=== PATIENT | female | born 1970 ===

== ENCOUNTER 2018-01-14 07:08 | Day surgery (SDC) | payer OTHER ==
[~2018-01-14 07:08] MED LIST: Buffered Lidocaine 0.9% SYRIN* 5 ML/SYR SYRINGE INTRADERM ONE; Famotidine IV* 10 MG/ML 2 ML (20 mg) IV ONE; Metoclopramide TAB* 10 MG PO ONE
[2018-01-14] MEDS ORDERED: Famotidine IV* 10 MG/ML 2 ML (20 mg) ONE (07:16)
[2018-01-14] MEDS ORDERED: Buffered Lidocaine 0.9% SYRIN* 5 ML/SYR SYRINGE ONE (07:16)
[2018-01-14] MEDS ORDERED: Metoclopramide IV* 5 MG/ML 2 ML VIAL ONE (07:16)
[2018-01-14] MEDS ORDERED: Metoclopramide TAB* 10 MG ONE (07:49)
[2018-01-14] MEDS ORDERED: Bupivacaine 0.25% SDV* 30 ML ONE (07:55)
[2018-01-14] MEDS ORDERED: Propofol* 10 MG/ML 20 ML BTL IV PUSH ONE ×2 (08:17→10:08)
[2018-01-14] MEDS ORDERED: Lidocaine 2% PF * 5 ML VIAL ONE (08:17)
[2018-01-14] MEDS ORDERED: fentaNYL* 50 MCG/ML 2 ML VIAL (100 MCG VIAL) ONE (08:17)
[2018-01-14] MEDS ORDERED: Dexamethasone IV* 4 MG/ML 1 ML (4 MG) ONE (08:17)
[2018-01-14] MEDS ORDERED: Ondansetron INJ* 2 MG/ML VIAL ONE (08:17)
[2018-01-14] MEDS ORDERED: Ketorolac INJ* 30 MG/ML 1 ML VIAL ONE (08:17)
[2018-01-14] MEDS ORDERED: Midazolam* 1 MG/ML 10 ML VIAL (10 MG) ONE (08:17)
[2018-01-14] MEDS ORDERED: Ondansetron INJ* 2 MG/ML VIAL IV PRN (08:34)
[2018-01-14] MEDS ORDERED: oxyCODONE/Acetamin 5/325 MG* TAB PO PRN (08:34)
[2018-01-14] MEDS ORDERED: Naloxone* 0.4 MG/ML 1 ML VIAL IV PRN (08:34)
[2018-01-14] MEDS ORDERED: fentaNYL* 50 MCG/ML 2 ML VIAL (100 MCG VIAL) IV PRN (08:34)
[2018-01-14 11:09] VITALS: BP 103/55
--- NOTE | 2018-01-18 14:02 | OP ---
DATE OF OPERATION: 01/14/18 - SDS DATE OF : 72 SURGEON: Remigio Costa MD CARPENTER PROTOTYPE: TYSON Mckinney ANESTHESIOLOGIST: Dr. Nuñez. ANESTHESIA: Local MAC. PRE-OP DIAGNOSIS: Right carpal tunnel syndrome. POST-OP DIAGNOSIS: Right carpal tunnel syndrome. OPERATIVE PROCEDURE: Right open carpal tunnel release. INDICATIONS: Britany is 48 years old. She has had progressive right carpal tunnel syndrome. I talked to her about her options, she had wanted to proceed with a right carpal tunnel release. FINDINGS: As expected. ESTIMATED BLOOD LOSS: 2 mL. COMPLICATIONS: None. DESCRIPTION OF PROCEDURE: Britany was seen in the preoperative holding area. The correct site, side, and procedure were identified. We came back to the operating room, where she got some anesthesia. I infiltrated the operative area with 0.25% plain Marcaine. The arm was then prepped and draped in the usual fashion and a time-out was performed. I then exsanguinated the arm with the Esmarch and the tourniquet was inflated to 250 mmHg. I made a 2 to 3-cm longitudinal incision in the standard location for an open carpal tunnel release. Dissection was carried down through the subcutaneous tissue and palmar fascia. The transverse carpal ligament was released just off the radial aspect of the hook of the hamate. Once the nerve was completely released distally, I came proximally and released the fascia and subcutaneous tissue and retracted this volarly and ulnarly and then under direct visualization, I released the remainder of the transverse carpal ligament and distal antebrachial fascia to a level several centimeters proximal to the wrist flexion crease. Once there was absolutely no compression on the nerve, I irrigated out the wound. The skin was closed with 4-0 nylon suture. The wound was dressed with Xeroform, 4x4's, sterile Webril, and an Mingo bandage. She was then taken to the recovery room in stable condition. [id number]/[facility] #: [id number] MTDD
== END 2018-01-14 11:33 | disposition home or self-care (01) ==
LOC: OR 07:08
PROVIDERS: ATTEND Orthopaedic Surgery Hand Surgery
DX: G56.01 Carpal tunnel syndrome, right upper limb (principal); E11.9 Type 2 diabetes mellitus without complications; E55.9 Vitamin D deficiency, unspecified; E78.00 Pure hypercholesterolemia, unspecified; R74.0 Nonspecific elevation of levels of transaminase and lactic acid dehydrogenase [LDH]
CPT/HCPCS: A9270-GY; J1100; J1885; J2250; J2405; J2704; J2765; J3010